=== PATIENT | female | born 1955 | race Two or more races ===

== ENCOUNTER 2025-08-30 07:55 | Day surgery (SDC) | payer OTHER, SELFPAY ==
--- NOTE | 2025-08-29 07:00 | EKG_ITS ---
[facility] Test Date: 2025-08-29 Pat Name: MARIZOL SALGADO Department: Room: - Gender: Female Manufacturing Leader: CARLOS : 1955 Requested By: Errol Mcgee Order Number: [id number] Reading MD: Errol Mcgee Measurements Intervals Huger Rate: 77 P: 26 PA: 185 QRS: -20 QRSD: 94 T: 29 QT: 399 QTc: 452 Interpretive Statements SINUS RHYTHM LOW QRS VOLTAGE IN PRECORDIAL LEADS [QRS DEFLECTION < 1.0 mV IN CHEST LEADS] PATTERN CONSISTENT WITH PULMONARY DISEASE MODERATE VOLTAGE CRITERIA FOR LVH, CONSIDER NORMAL VARIANT [MEETS CRITERIA IN ONE OF: R(aVL), S(V1), R(V5), R(V5/V6)+S(V1)] No previous ECG available for comparison /store/S0/[id number]/[id number].pdf
[2025-08-29 11:25] VITALS: BMI 29.6
[2025-08-29 12:22] LABS: Basophils # (Auto) 0.1 Thou/mm3 (0.0-0.2); Basophils % (Auto) 1 % (0-2.5); Eosinophils # (Auto) 0.1 Thou/mm3 (0.0-0.5); Eosinophils % (Auto) 2 % (0-10); Hematocrit 35.6 % (36.0-46.0); Hemoglobin 11.5 g/dL (12.0-16.0); Immature Granulocytes Auto 0.02 Thou/mm3 (0.00-0.00); Lymphocytes # (Auto) 2.8 Thou/mm3 (1.0-4.8); Lymphocytes % (Auto) 38 % (10-50); Mean Corpuscular HGB Conc 32.3 g/dl (31.0-37.0); Mean Corpuscular Hemoglobin 27.6 pg (25.0-35.0); Mean Corpuscular Volume 86 fL (80-100); Monocytes # (Auto) 0.6 Thou/mm3 (0.0-0.8); Monocytes % (Auto) 9 % (0-12); Neutrophils # (Auto) 3.7 Thou/mm3 (1.8-7.7); Neutrophils % (Auto) 50 % (37-80); Nucleated Red Blood Cell # 0.00 Thou/mm3 (0.00-0.00); Nucleated Red Blood Cell % 0 /100 WBC (0); Platelet Count 288 Thou/mm3 (140-440); RDW Standard Deviation 46.6 fL (36.4-46.3); Red Blood Count 4.16 Miln/mm3 (4.00-5.20); White Blood Count 7.3 Thou/mm3 (3.6-11.0)
[2025-08-29 12:31] LABS: Alanine Aminotransferase 13 U/L (10-49); Albumin, Serum 4.8 gm/dL (3.4-4.8); Albumin/Globulin Ratio 1.5 (1.2-2.2); Alkaline Phosphatase 83 U/L (46-116); Anion Gap 10 (7-16); Aspartate Amino Transferase 23 U/L (0-34); BUN/Creatinine Ratio 26 Ratio (12-20); Bilirubin,Total 0.6 mg/dL (0.3-1.2); Blood Urea Nitrogen 18 mg/dL (9-23); Calcium 9.9 mg/dL (8.3-10.6); Calcium (Corrected) 9.9 mg/dL (8.5-10.1); Carbon Dioxide 25.3 mMol/L (20.0-31.0); Chloride 106 mMol/L (98-107); Creatinine (Component) 0.7 mg/dL (0.6-1.3); Estimated Creatinine Clearance 72.9 mL/min (>60); Globulin 3.3 gm/dL (2.3-3.5); Glucose 99 mg/dL (74-106); Osmolality,Calculated 283 (275-295); Potassium 4.1 mMol/L (3.4-5.1); Sodium 141 mMol/L (136-145); Total Protein 8.1 gm/dL (5.7-8.2); eGFR > 60 See Note
[2025-08-30] VITALS (8 sets, daily range): BP systolic 113–192; BP diastolic 56–99; PULSE 72–95; RESP 16–20; TEMP 36.2–36.4; O2SAT 95–98; BMI 29.6
--- NOTE | 2025-08-30 09:55 | SUR.PHASEI ---
pt received from OR in recovery bay 1. pt awake and alert, breathing unlabored on room air. v/s stable. pt dressing to left lower extremity cdi. report received from Doron GRIMM and Beka SOLANO.
--- NOTE | 2025-08-30 10:01 | PD.SUROPNT ---
Date of Procedure 08/30/25 Pre Op Diagnosis Left thigh mass Post Op Diagnosis Large cystic mass in the subcutaneous soft tissue of anterior left thigh Procedure Excision of subcutaneous soft tissue mass from anterior left thigh Findings An approximately 6 cm cystic mass in the subcutaneous soft tissue mass of anterior left thigh Procedure Description Patient brought into the operating room in supine position. After administration of general tracheal anesthesia, patient's left thigh prepped and draped in standard surgical manner. After administration of local anesthesia an approximately 9 x 3 cm elliptical incision was made in the longitudinal fashion over anterior left thigh mass. Dissection was deepened into soft tissue. Underlying mass was circumferentially dissected out surrounding tissue. The mass was noted to be cystic in nature. Once the mass was removed hemostasis achieved with electrocautery. The wound was washed and irrigated. Hemostasis was adequate and satisfactory. Subcutaneous tissue closed with interrupted sutures using 2-0 Vicryl and the incision was closed with 4-0 Monocryl in subcuticular fashion. Dermabond applied. Sterile pressure dressings applied. Patient tolerated procedure well. She was extubated, breathing spontaneously and without difficulty and was transferred to postanesthesia care in stable condition. Instruments, needles and sponge counts were reported to be correct x 2. Anesthesia GETA and local Pathology / specimen Other (Left thigh mass) Estimated Blood Loss 5 Condition Stable Disposition PACU Surgeon Errol Mcgee MD Surgical Staff Operation Date: 08/30/25 09:45 <No data on this case meets the specified criteria>
--- NOTE | 2025-08-30 10:07 | SUR.PHASEI ---
pt able to tolerate oral fluids without difficulty swallowing or nausea/vomiting.
--- NOTE | 2025-08-30 10:27 | SUR.PHASEII ---
pt blood pressure elevated, Beka SOLANO informed new orders received.
[2025-08-30] MEDS: LABETALOL INJ 5 MG/ML VIAL 20 ML IVP (10:31)
--- NOTE | 2025-08-30 11:11 | SUR.PHASEII ---
pt awake and alert, breathing unlabored on room air. v/s stable. pt dressing to left lower extremity cdi. pt able to ambulate to wheelchair with steady gait. d/c instructions given with melissa Vazquez in room, all questions answered. pt d/c via wheelchair with all belongings.
== END 2025-08-30 11:11 | disposition home or self-care (01) ==
PROVIDERS: Anesthesiology; PCP Family Medicine; Referring Provider Surgery; Visit Provider Surgery
PROC: (CPT 27337; principal; 2025-08-30 09:30)
DX: R22.42 Localized swelling, mass and lump, left lower limb (principal); Z01.810 Encounter for preprocedural cardiovascular examination; E78.00 Pure hypercholesterolemia, unspecified; M19.90 Unspecified osteoarthritis, unspecified site; Z79.899 Other long term (current) drug therapy
CPT/HCPCS: 27337; 36415; 80053; 85025; 93005; A4649; J0131; J0690; J1885; J2250; J2704; J3010; J3490; J1596; J1920